=== PATIENT | female | born 1970 | race Caucasian/White ===

== ENCOUNTER 2023-06-05 19:06 | Emergency (ER) | payer OTHER, SELFPAY ==
--- NOTE | ~2023-06-05 | XR_ITS ---
EXAMINATION: XR chest 2V Exam Date/Time: 06/05/2023 19:35 [employer] HISTORY: chest pain X 3 DAYS RECENT PLEURISY, TOLD BY GR Comparison: None. RESULT: Lines, tubes, and devices: None. Lungs and pleura: Biapical pleural scarring. Lungs otherwise clear. Cardiomediastinal silhouette: Unremarkable. Other: No acute osseous or upper abdominal finding. IMPRESSION: No acute cardiopulmonary process. Reviewed, dictated and finalized at location K. 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
--- NOTE | 2023-06-05 19:07 | ECG_ITS ---
Measurements Intervals [place] Rate: 96 P: 35 DE: 125 QRS: 75 QRSD: 86 T: -1 QT: 333 QTc: 421 Interpretive Statements SINUS RHYTHM VOLTAGE CRITERIA FOR LVH NONSPECIFIC ST & T-WAVE ABNORMALITY- ANTEROLAT/INF LEADS BASELINE ARTIFACT- I, II, V1 BORDERLINE ECG NO PREVIOUS ECG AVAILABLE FOR COMPARISON Electronically Signed On 06-05-2023 20:00:51 [employer]ES [employer]PRES[employer] [facility] [facility] by Saeed Chavarria D.O.
[2023-06-05 19:36] VITALS: BP 98/83; PULSE 97; RESP 17; TEMP 36.8; O2SAT 98
[2023-06-05 19:40] LABS: Basophils Absolute Auto 0.1 K/mm3 (0.0-0.1); Basophils Percent Auto 0.8 % (0.2-1.2); Eosinophils Absolute Auto 0.2 K/mm3 (0-0.3); Eosinophils Percent Auto 3.1 % (0-4.4); Hematocrit 42.6 % (37.0-47.0); Hemoglobin 13.7 g/dL (12.0-15.0); Immature Granulocyte Absolute 0.01 K/mm3 (0.00-0.031); Immature Granulocyte Percent A 0.1 % (0-0.5); Lymphocytes Absolute Auto 2.56 K/mm3 (0.9-3.2); Lymphocytes Percent Auto 32.7 % (18.3-44.2); Mean Corpuscular HGB Conc 32.2 g/dl (32-36); Mean Corpuscular Hemoglobin 29.7 pg (26-34); Mean Corpuscular Volume 92.2 fl (80-100); Monocytes Absolute Auto 0.5 K/mm3 (0.1-0.6); Monocytes Percent Auto 5.9 % (2.6-8.5); Neutrophils Absolute Auto 4.5 K/mm3 (1.3-6.7); Neutrophils Percent Auto 57.4 % (45.5-73.1); Platelet Count Result 285 k/mm3 (150-375); Red Blood Count 4.62 M/mm3 (4.2-5.4); Red Cell Distribution Width 12.3 % (11.5-14.5); White Blood Count 7.8 K/mm3 (4.5-10.0)
[2023-06-05 19:51] LABS: Alanine Aminotransferase 26 U/L (6-35); Albumin Level 4.6 g/dL (3.5-5.1); Alkaline Phosphatase 100 U/L (38-126); Anion Gap 9 mmol/L (8-16); Aspartate Amino Transferase 29 U/L (14-36); Bilirubin,Total 0.4 mg/dL (0.2-1.3); Blood Urea Nitrogen 16 mg/dL (7-17); Calcium 9.8 mg/dL (8.4-10.2); Carbon Dioxide 28 mmol/L (22-30); Chloride 105 mmol/L (98-107); Estimated CRCL calculation 81 ml/min; Estimated Glomerular Filt Rate > 60; Glucose 114 mg/dL (65-110); Lipase 321 U/L (23-300); Potassium 4.3 mmol/L (3.4-5.0); Sodium 142 mmol/L (137-145)
[2023-06-05 19:56] LABS: Partial Thromboplastin Time 33.1 SECONDS (22.3-36.8); Prothrombin Time 13.2 Seconds (11.1-14.7)
[2023-06-05 20:03] LABS: Troponin I < 0.012 ng/mL (0.000-0.034)
[2023-06-05 20:54] VITALS: BP 129/91; PULSE 93; RESP 22; O2SAT 98
[2023-06-05] MEDS: ASPIRIN 81 MG CHEWABLE TABLET 324 MG PO (20:57)
--- NOTE | 2023-06-05 21:17 | ED.CHESTPAIN ---
HPI - Chest Pain General Chief Complaint: Chest Pain Stated Complaint: chest pains for months Time Seen by Provider: 06/05/23 20:38 History of Present Illness HPI narrative: patient presents emergency department with a couple complaints. She stop smoking crystal meth 7 months ago. Since then she is concerned that the police are wire in her house. She thinks that they can listen in on her and she is hearing things she should not be hearing from them. She states she is being tortured and her house . She also complains of chest pain likely related to stress per the patient is been ongoing for the past few months. She has been checked out at [facility] twice but has not seen a harness fitter. patient denies homicidal and suicidal ideation Related Data Allergies Allergy/AdvReac Type Severity Reaction Status Date / Time morphine Allergy Other Verified 06/05/23 19:39 Review of Systems Review of Systems: Negative except what is documented in HPI Exam Narrative: GENERAL: Well-appearing, well-nourished, and in no acute distress. HEAD: Normocephalic, atraumatic. EYES: PERRLA and EOMI. ENT: Nares clear, no rhinorrhea or epistaxis. Mucous membranes moist. NECK: Supple. CHEST: Clear to auscultation. No respiratory distress. HEART: Regular rate and rhythm. ABDOMEN: Soft, nontender, nondistended. EXTREMITIES: Normal range of motion. No edema. SKIN: Warm, dry, no rash. NEURO: No focal deficits. Alert and oriented x3. PSYCH: Normal mood and affect. Course Course Emergency Course: differential diagnosis includes but not limited to chest wall pain, CAD, pneumonia, stress, continued crystal meth use, psychosis secondary to previous crystal meth use Telemetry ordered due to chest pain to evaluate for dysrhythmias. Evaluated by myself. Rhythm NS Rate 95 Vital Signs Vital signs: Vital Signs Temperature 36.8 C 06/05/23 19:36 Pulse Rate 97 06/05/23 19:36 Respiratory Rate 17 06/05/23 19:36 Blood Pressure 98/83 L 06/05/23 19:36 Pulse Oximetry 98 06/05/23 19:36 Oxygen Delivery Room Air 06/05/23 19:36 Temperature 36.8 C 06/05/23 19:36 Pulse Rate 77 06/05/23 21:59 Respiratory Rate 16 06/05/23 21:59 Blood Pressure 105/77 06/05/23 21:59 Pulse Oximetry 99 06/05/23 21:59 Oxygen Delivery Room Air 06/05/23 19:36 MDM - Chest Pain MDM Narrative Medical decision making narrative: initial they did repeat troponin normal. EKG sinus rhythm with no acute signs of ischemia. Will DC to home with follow-up Lab Data 06/05/23 19:33 06/05/23 19:33 Labs: Lab Results 06/05/23 06/05/23 06/05/23 Range/Units 19:33 21:21 22:13 WBC 7.8 (4.5-10.0) K/mm3 RBC 4.62 (4.2-5.4) M/mm3 Hgb 13.7 (12.0-15.0) g/dL Hct 42.6 (37.0-47.0) % MCV 92.2 (80-100) fl MCH 29.7 (26-34) pg MCHC 32.2 (32-36) g/dl RDW 12.3 (11.5-14.5) % Plt Count 285 (150-375) k/mm3 MPV 12.0 H (7.4-10.4) fl Immature Gran % (Auto) 0.1 (0-0.5) % Neut % (Auto) 57.4 (45.5-73.1) % Lymph % (Auto) 32.7 (18.3-44.2) % [place] % (Auto) 5.9 (2.6-8.5) % Eos % (Auto) 3.1 (0-4.4) % Baso % (Auto) 0.8 (0.2-1.2) % Lymph # (Auto) 2.56 (0.9-3.2) K/mm3 [place] # (Auto) 0.5 (0.1-0.6) K/mm3 Eos # (Auto) 0.2 (0-0.3) K/mm3 Baso # (Auto) 0.1 (0.0-0.1) K/mm3 Abs Immat Gran (auto) 0.01 (0.00-0.031) K/mm3 Absolute Neuts (auto) 4.5 (1.3-6.7) K/mm3 Absolute Nucleated RBC 0.0 (0.0-0.012) K/mm3 Nucleated RBC % 0.0 (0.0-0.2) % PT 13.2 (11.1-14.7) Seconds INR 1.0 APTT 33.1 (22.3-36.8) SECONDS Sodium 142 (137-145) mmol/L Potassium 4.3 (3.4-5.0) mmol/L Chloride 105 (98-107) mmol/L Carbon Dioxide 28 (22-30) mmol/L Anion Gap 9 (8-16) mmol/L BUN 16 (7-17) mg/dL Creatinine 0.60 L (0.7-1.0) mg/dL Estim Creat Clear Calc 81 ml/min Estimated GFR > 60 (59 - )
[2023-06-05 21:52] LABS: Amphetamine Screen Urine Negative (Negative); Barbiturate Screen Urine Negative (Negative); Benzodiazepines Screen Urine Negative (Negative); Cannabinoid Screen Urine Negative (Negative); Cocaine Screen Urine Negative (Negative); Methadone Screen Urine Negative (Negative); Opiate Screen Urine Negative (Negative); Phencyclidine Screen Urine Negative (Negative)
[2023-06-05 21:59] VITALS: BP 105/77; PULSE 77; RESP 16; O2SAT 99
[2023-06-05 22:38] LABS: Troponin I < 0.012 ng/mL (0.000-0.034)
[2023-06-05 23:46] VITALS: BP 117/69; PULSE 87; RESP 13; O2SAT 97
== END 2023-06-05 23:46 | disposition home or self-care (01) ==
PROVIDERS: Student in an Organized Health Care Education/Training Program; Emergency Provider Emergency Medicine; PCP Internal Medicine
DX: R07.9 Chest pain, unspecified (principal); R74.8 Abnormal levels of other serum enzymes; R94.31 Abnormal electrocardiogram [ECG] [EKG]
CPT/HCPCS: 36415; 71046; 80053; 80307; 83690; 84484; 85025; 85610; 85730; 93005; 99284; A9270

== ENCOUNTER 2023-10-22 11:18 | Emergency (ER) | payer OTHER, SELFPAY ==
[2023-10-22 11:36] VITALS: BP 120/78; PULSE 100; RESP 16; TEMP 36.9; O2SAT 97
--- NOTE | 2023-10-22 12:22 | ED.EXTPRO ---
HPI - Extremity Problem General Chief complaint: Extremity Problem,Nontraumatic Stated complaint: leg pain Time Seen by Provider: 10/22/23 11:50 Source: patient Mode of arrival: ambulatory Limitations: no limitations History of Present Illness HPI Narrative: This is a 53-year-old female who presents to the ED with chief complaint of chronic left thigh pain as well as a new rash. Reports that she has had several months of left thigh pain that they are currently working up fully at [facility]. She states that she had a cardiac catheterization and ultrasound of the left leg a couple weeks ago. States that in the last couple of days she has developed a rash to the right leg as well as rash to the face. She reports that she has been picking at the lesions but they have not been overly itchy. Denies any pain to the no rash. Denies swelling, erythema, fevers, chills, dysphagia, shortness of breath. Related Data Allergies Allergy/AdvReac Type Severity Reaction Status Date / Time morphine Allergy Other Verified 06/05/23 19:39 Review of Systems Review of Systems: All systems as dictated in HPI Exam Narrative: GENERAL: Well-appearing, well-nourished, and in no acute distress. HEAD: Normocephalic, atraumatic. EYES: PERRLA and EOMI. ENT: Nares clear, no rhinorrhea or epistaxis. Mucous membranes moist. Oropharynx without tonsillar hypertrophy exudate or other lesions. NECK: Supple. No adenopathy or masses. CHEST: No respiratory distress. Clear to auscultation. No wheezes rales or rhonchi HEART: Regular rate and rhythm. No murmur heard. Normal peripheral pulses. ABDOMEN: Soft, nontender, nondistended, normal active bowel sounds. MSK: Normal range of motion. No edema. SKIN: Excoriated lesions to the face, right lower leg and right hand. No palmar lesions or lesions to the soles of the feet. No tenderness. No surrounding erythema or induration. No red streaking. No track michelle NEURO: Alert and oriented x3. No focal deficits. PSYCH: Normal mood and affect. Course Vital Signs Vital signs: Vital Signs Temperature 98.4 F 10/22/23 11:36 Pulse Rate 100 10/22/23 11:36 Respiratory Rate 16 10/22/23 11:36 Blood Pressure 120/78 10/22/23 11:36 Pulse Oximetry 97 10/22/23 11:36 Oxygen Delivery Room Air 10/22/23 11:36 Temperature 98.4 F 10/22/23 11:36 Pulse Rate 80 10/22/23 12:45 Respiratory Rate 16 10/22/23 12:45 Blood Pressure 124/68 10/22/23 12:45 Pulse Oximetry 98 10/22/23 12:45 Oxygen Delivery Room Air 10/22/23 11:36 MDM - Extremity (Nontraumatic) MDM Narrative Medical decision making narrative: This is a 53-year-old female who presents to the ED for chief complaint of rash to the lower legs and face. Vitals are normal. Afebrile. Exam reveals no evidence of infection. She has had some chronic pain of the left leg and had this fully worked up by her doctor that [facility]. The rashes new complaint today. There does seem to be an allergic reaction occurring but no evidence of airway compromise. Will give prescription for steroids and instructed take Benadryl. Pt will be discharged in stable condition. Return precautions given and supportive measures discussed. Pt is understanding and agreeable with plan for discharge and follow-up with PCP. Discharge Plan Discharge Clinical Impression: Rash Patient Disposition: Home, Self-Care Condition: Stable Instructions: Antibiotic Form Additional Instructions: Your exam today is reassuring overall. We will get you started on steroids. Please take Benadryl nightly. Follow-up closely with your primary care doctor. If you have any new or worsening symptoms please return to the ER for further evaluation. Prescriptions: New prednisone 20 mg tablet 20 mg PO DAILY 5 Days Qty: 5 0RF Follow-up/Referrals: Radha,Antonella Unger MD [Primary Care Provider] - Time of Disposition: 12:27
[2023-10-22 12:45] VITALS: BP 124/68; PULSE 80; RESP 16; O2SAT 98
== END 2023-10-22 12:50 | disposition home or self-care (01) ==
PROVIDERS: Emergency Provider Physician Assistant; PCP Internal Medicine
DX: R21 Rash and other nonspecific skin eruption (principal)
CPT/HCPCS: 99283

== ENCOUNTER 2023-11-04 09:29 | Emergency (ER) | payer OTHER, SELFPAY ==
--- NOTE | ~2023-11-04 | US_ITS ---
EXAMINATION: US venous doppler [facility] DATE: 11/04/2023 10:15 INDICATION: Lower limb pain TECHNIQUE: Grayscale ultrasound images without and with compression and Doppler ultrasound images of the left lower extremity veins were obtained. COMPARISON: None. FINDINGS: The visualized portions of left common femoral vein, profunda (deep) femoral vein, femoral vein, popl iteal vein, peroneal veins, posterior tibial veins, gastrocnemius vein and greater saphenous vein out flow are patent. IMPRESSION: 1. No deep venous thrombosis in the left lower limb. Reviewed, dictated and finalized at location A.
[2023-11-04 09:33] VITALS: BP 137/80; PULSE 90; RESP 15; TEMP 36.4; O2SAT 100
[2023-11-04 10:54] LABS: Basophils Percent Auto 0.4 % (0.2-1.2); Eosinophils Absolute Auto 0.1 K/mm3 (0-0.3); Eosinophils Percent Auto 1.3 % (0-4.4); Hemoglobin 13.4 g/dL (12.0-15.0); Immature Granulocyte Absolute 0.01 K/mm3 (0.00-0.031); Immature Granulocyte Percent A 0.1 % (0-0.5); Lymphocytes Absolute Auto 2.16 K/mm3 (0.9-3.2); Lymphocytes Percent Auto 32.4 % (18.3-44.2); Mean Corpuscular HGB Conc 31.9 g/dl (32-36); Mean Corpuscular Hemoglobin 29.8 pg (26-34); Mean Corpuscular Volume 93.5 fl (80-100); Mean Platelet Volume 11.1 fl (7.4-10.4); Monocytes Absolute Auto 0.4 K/mm3 (0.1-0.6); Monocytes Percent Auto 6.4 % (2.6-8.5); Neutrophils Percent Auto 59.4 % (45.5-73.1); Platelet Count Result 294 k/mm3 (150-375); Red Blood Count 4.49 M/mm3 (4.2-5.4); Red Cell Distribution Width 12.6 % (11.5-14.5); White Blood Count 6.7 K/mm3 (4.5-10.0)
[2023-11-04 11:03] LABS: Anion Gap 2 mmol/L (4-12); Blood Urea Nitrogen 19 mg/dL (7-17); Calcium 9.4 mg/dL (8.4-10.2); Carbon Dioxide 33 mmol/L (22-30); Chloride 105 mmol/L (98-107); Estimated CRCL calculation 81 ml/min; Estimated Glomerular Filt Rate > 60; Glucose 108 mg/dL (65-110); Potassium 4.5 mmol/L (3.4-5.0); Sodium 140 mmol/L (137-145)
--- NOTE | 2023-11-04 11:10 | PC.NURSE ---
Report given to Ramonita PFEIFFER, all questions answered
[2023-11-04 11:12] VITALS: BP 123/80; PULSE 88; RESP 18; O2SAT 100
--- NOTE | 2023-11-04 11:41 | ED.GENADULT ---
HPI - General Adult General Chief complaint: Extremity Problem,Nontraumatic Stated complaint: left Leg pain Time Seen by Provider: 11/04/23 09:46 Source: patient Mode of arrival: ambulatory Limitations: no limitations History of Present Illness HPI narrative: 53-year-old otherwise healthy here with a complaint of pain to her left thigh for the last several days. She denies any trauma. 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 No history of fever or chills . She also complains of a rash on her chin and face which is been ongoing for quite some time. She was seen in the ER for the same was given prednisone with minimal relief the Location: lower extremity Radiation: non-radiation Severity: moderate Quality: aching Pain Consistency: constant Relieving factors: none Associated symptoms: denies other symptoms Related Data Allergies Allergy/AdvReac Type Severity Reaction Status Date / Time morphine Allergy Other Verified 11/04/23 09:30 Review of Systems Review of Systems: All systems reviewed & are unremarkable except as noted in HPI and below Constitutional: Constitutional: Reports no additional constitutional complaints Eyes: Eyes: Reports no additional eye complaints ENT: Reports system reviewed and no additional complaints, except as documented Cardiovascular: Cardiovascular: Reports no additional cardiovascular complaints Respiratory: Respiratory: Reports no additional respiratory complaints Gastrointestinal: Gastrointestinal: Reports no additional gastrointestinal complaints Musculoskeletal: Musculoskeletal: Reports as per HPI Integumentary/Breasts: Skin/Breast: Reports as per HPI Neurologic: Reports system reviewed and no additional complaints, except as documented Psychiatric: Psychiatric: Reports no additional psychiatric complaints Exam Narrative: GENERAL: Well-appearing, well-nourished, and in no acute distress. HEAD: Normocephalic, atraumatic. EYES: PERRLA and EOMI. ENT: Nares clear, no rhinorrhea or epistaxis. Mucous membranes moist. NECK: Supple. CHEST: Clear to auscultation. No respiratory distress. HEART: Regular rate and rhythm. No murmur heard. Normal peripheral pulses. ABDOMEN: Soft, nontender, nondistended, normal active bowel sounds. EXTREMITIES: Normal range of motion. No edema. SKIN: Warm, dry, and has a small scabbed lesions on her chin and forehead. Skin around it is mildly erythematous no drainage noted NEURO: No focal deficits. Alert and oriented x3. PSYCH: Normal mood and affect. Course Course Emergency Course: Notified patient about her lab, venous Doppler studies. Pain most likely musculoskeletal. Advised her to take medications as prescribed, follow-up with the primary doctor regarding the rash will start on clindamycin advised to follow with a embroidery patternmaker if it is not improved in 1 week. Vital Signs Vital signs: Vital Signs Temperature 36.4 C 11/04/23 09:33 Pulse Rate 90 11/04/23 09:33 Respiratory Rate 15 11/04/23 09:33 Blood Pressure 137/80 11/04/23 09:33 Pulse Oximetry 100 11/04/23 09:33 Oxygen Delivery Room Air 11/04/23 09:33 Temperature 36.4 C 11/04/23 09:33 Pulse Rate 88 11/04/23 11:12 Respiratory Rate 18 11/04/23 11:12 Blood Pressure 123/80 11/04/23 11:12 Pulse Oximetry 100 11/04/23 11:12 Oxygen Delivery Room Air 11/04/23 09:33 Medical Decision Making Vital Signs Vital Signs: Vital Signs Temperature 36.4 C 11/04/23 09:33 Pulse Rate 90 11/04/23 09:33 Respiratory Rate 15 11/04/23 09:33 Blood Pressure 137/80 11/04/23 09:33 Pulse Oximetry 100 11/04/23 09:33 Oxygen Delivery Room Air 11/04/23 09:33 Temperature 36.4 C 11/04/23 09:33 Pulse Rate 88 11/04/23 11:12 Respiratory Rate 18 11/04/23 11:12 Blood Pressure 123/80 11/04/23 11:12 Pulse Oximetry 100 11/04/23 11:12 Oxygen Delivery Room Air 11/04/23 09:33 Lab Data 11/04/23 10:46 11/04/23 1
== END 2023-11-04 12:27 | disposition home or self-care (01) ==
PROVIDERS: Emergency Provider Family Medicine; PCP Internal Medicine
DX: M79.652 Pain in left thigh (principal); R21 Rash and other nonspecific skin eruption
CPT/HCPCS: 36415; 80048; 85025; 93971; 99284